=== PATIENT | male | born 1980 | race Caucasian/White ===

== ENCOUNTER 2016-12-30 15:43 | Inpatient (IN) | payer BC ==
--- NOTE | ~2016-12-30 | DS ---
Discharge Summary [place] [id number] [place]. [address] NAME: GRACIELA ACHARYA : 76 STATUS : DIS IN PAT#: [id number] AGE: 36 ADM/REG DATE : 12/30/16 MR#: [id number] REPORT SERV DATE: 01/03/17 DICTATED BY: DATE: REPORT STATUS : Draft TRANSCRIBED BY: MODL DATE: 01/02/17 ADMISSION DATE: 12/30/2016 DISCHARGE DATE: 01/02/2017 DISCHARGE DIAGNOSES: 1. Acute on chronic pancreatitis. 2. Nausea and vomiting. 3. Abdominal pain secondary to pancreatitis. 4. Hypertension. 5. Diabetes mellitus type 2. CONSULTATIONS: GI, ELHAM Garcia and Dr. Gale. PROCEDURES AND IMAGIN. 12/30/2016, CT of the abdomen and pelvis with contrast showed:. a. Mild acute pancreatitis pattern with infiltration of peripancreatic fat planes about the pancreatic body and head. b. Stable pancreatic pseudocyst at the pancreatic tail, measuring 4.8 x 2.8 cm, a decreasing pancreatic pseudocyst at the pancreatic body measuring 1.6 x 0.6 compared to 2 x 3 cm on prior pancreatic CT. c. Stable changes of cholecystectomy. d. Nonobstructing left nephrolithiasis. 2. 12/31/2016, CT of the abdomen without contrast showed:. a. CT pattern most consistent with acute pancreatitis in the appropriate clinical setting. b. Two small pancreatic pseudocysts. c. Bilateral nonobstructing nephrolithiasis. d. Status post cholecystectomy. e. Small pericardial effusion of uncertain etiology and clinical significance. f. Mild bibasilar subsegmental atelectasis. 3. 12/31/2016, KUB showed nonobstructive bowel gas pattern and 0.4 cm left-sided nephrolith visible. HOSPITAL COURSE: This is a pleasant 36-year-old male with past medical history of chronic pancreatitis, being followed by Dr. Tucker Gale of GI. Please see Dr. Radha Brown's H and P dictated on 12/30/2016 for complete details regarding the patient's admission. In brief, the patient was admitted by Dr. Brown for initial workup and management of his acute on chronic pancreatitis with intractable nausea and vomiting and hypertensive urgency. During the patient's stay, the patient has been seen by GI on 12/31/2016. The patient has gone through a period of NG tube suction and inability to tolerate foods as well as severe abdominal pain. The patient also had extended episodes of hypertension that were only controlled with IV hydralazine. The patient has since been transitioned to clonidine 0.2 mg p.o. q.8 hours with good results. The patient's home Lantus dose had been held due to patient's n.p.o. status. This will be resumed upon his discharge. The patient has been able to eat two meals without nausea and vomiting. The patient is also taking p.o. liquids Discharge Summary [address] [place]. [address] NAME: GRACIELA ACHARYA : 76 STATUS : DIS IN PAT#: [id number] AGE: 36 ADM/REG DATE : 12/30/16 MR#: [id number] REPORT SERV DATE: 01/03/17 DICTATED BY: DATE: REPORT STATUS : Draft TRANSCRIBED BY: MODL DATE: 01/02/17 well. Discussed with the patient the need to take clonidine on a continual basis due to rebound hypertension and that he should not be running out of this medication. The patient states his current abdominal pain is 5/10 which he states is good for him. PHYSICAL EXAMINATION: HEENT: Head is atraumatic, normocephalic. Pupils are equal, round, reactive to light and accommodation. Sclerae are clear. Nonicteric. No xanthelasma. Good dentition. NECK: Neck is supple with no obvious thyromegaly or lymphadenopathy. Neck veins are flat. Trachea is midline. CARDIAC: S1 and S2 with no obvious murmurs, rubs, or gallops. HEART: Rate is regular. LUNGS: Clear anterior and posteriorly with no increase in respiratory effort. GI: Abdomen is soft and has mild tenderness in his left upper outer quadrant and mid epigastric region. Bowel sounds are active in all four quadrants. Last bowel movement was last night, on 01/01/2017. No palpable organomegaly. EXTREMITIES: No significant edema, clubbing, or cyanosis. Dorsalis pedis and posterior tibial pulses are palpable bilaterally. MUSCULOSKELETAL: Moves all extremities x4. He is ambulatory without assistance. No difficulties with balance. SKIN: Skin is warm and dry, intact, normal color and turgor. NEURO/PSYCH: The patient is alert and oriented x4, pleasant cooperative. Cranial nerves II through XII are grossly intact. Affect is bright. No apparent anxiety or depression. DISCHARGE DIET: The patient will be going home on a low-fat diet. DISCHARGE MEDICATIONS: Levemir 20 units daily, NovoLog sliding scale as directed, minoxidil 10 mg twice daily, MiraLAX one packet as needed for constipation, trazodone 50 mg at bedtime for sleep, vitamin D daily, vitamin B12 daily, melatonin one tablet as needed for sleep, omeprazole 20 mg as needed for heartburn, promethazine 12.5 mg every four hours as needed for nausea, oxycodone 7.5 mg/325 mg one tablet q.4 hours p.r.n. pain. ALLERGIES: THE PATIENT HAS NO KNOWN DRUG ALLERGIES. DISCHARGE INSTRUCTIONS: The patient is to follow up with his PCP, Dr. Sarah Peña, in 7 to 10 days. The patient already has a followup appointment scheduled with GI on 01/10/[address] Gale. The patient has been instructed to not stop his clonidine for any reason due to rebound hypertension. Should the patient develop any more severe nausea and vomiting or abdominal pain, the patient is to call GI, his PCP, or to present to the ER. About 30 minutes has been spent coordinating discharge care of this patient including face- to-face encounter and summarization of the discharge. DICTATED BY: Nat Hicks NP [facility] Discharge Summary [address] [address] NAME: GRACIELA ACHARYA : 76 STATUS : DIS IN PAT#: [id number] AGE: 36 ADM/REG DATE : 12/30/16 MR#: [id number] REPORT SERV DATE: 01/03/17 DICTATED BY: DATE: REPORT STATUS : Draft TRANSCRIBED BY: CLAYTON DATE: 01/02/17 Nat Hicks NP / [id number] CC: Rogelio Briggs Jr, MD SARAH PEÑA M.D.
--- NOTE | ~2016-12-30 | HP ---
History And Physical [place] [id number] [facility] [place]. [address] NAME: GRACIELA ACHARYA : 76 STATUS : ADM IN PAT#: [id number] AGE: 36 ADM/REG DATE : 12/30/16 MR#: [id number] REPORT SERV DATE: 12/30/16 DICTATED BY: TJ LYN DATE: 12/30/16 REPORT STATUS : Draft TRANSCRIBED BY: CLAYTON DATE: 12/30/16 DATE OF ADMISSION: 12/30/2016 CHIEF COMPLAINT: Abdominal pain. HISTORY OF PRESENT ILLNESS: This is a 36-year-old male with a past medical history of chronic pancreatitis being followed by Dr. Diane Gale, the GI physician, as an outpatient with a history of pseudocyst, presented with a two-day history of severe crampy abdominal pain that progressed. The patient states he treated himself with MiraLAX, made himself n.p.o. and then started clear liquids, gave himself Prilosec and Percocet. He states he usually treats himself at home when he has occasional abdominal pain, however, this occurrence did not resolve and actually progressed and became worse with above 10/10 abdominal discomfort in the epigastric area. The patient denies any antiinflammatory usage, not using an FANY or ARB. However, the patient did say he was on vacation last week and did have one alcoholic beverage. He states that he rarely has an alcoholic beverage, hardly at all. However, only had one beverage last week. However, today, also the patient has developed intractable nausea, vomiting, and could not keep down foods nor liquids and vomited up his medications. He presented to the ER and was seen by Dr. Segovia, in hypertensive urgency with blood pressure 193/109, some IV hydralazine has been ordered. Also, the patient had a CT of the abdomen and pelvis in the ER with some early signs of pancreatitis and stable pseudocyst in the tail of the pancreas. Also, the patient was given pain medications. He has had some positive loose stools today as well. He denies any subjective fever or chills. No chest pain. No shortness of breath. The is at bedside assisting with the patient's history. REVIEW OF SYSTEMS: Please refer to HPI. PAST MEDICAL HISTORY: Chronic pancreatitis with pseudocyst, type 2 diabetes, hypertension, fatty liver, nephrolithiasis, and cardiac murmur. PAST SURGICAL HISTORY: Cholecystectomy. SOCIAL HISTORY: No tobacco and rarely has an alcoholic beverage. Also, he did have one beverage last week while on vacation. Lives at home with his . FAMILY HISTORY: Type 2 diabetes. ALLERGIES: NO KNOWN ALLERGIES. HOME MEDICATIONS: Sliding scale insulin with NovoLog, Levemir 20 units subcu daily, minoxidil 10 mg p.o. b.i.d., Prilosec 20 mg p.o. daily p.r.n., Percocet 7.5 mg/325 one tab p.o. q.4 hours p.r.n., MiraLAX one pack p.o. daily p.r.n., Phenergan 12.5 mg p.o. q.4 hours p.r.n., trazodone 50 mg p.o. at bedtime, vitamin D, vitamin B12, melatonin at bedtime p.r.n. PHYSICAL EXAMINATION: History And Physical [address] [address] NAME: GRACIELA ACHARYA : 76 STATUS : [facility]#: [id number] AGE: 36 ADM/REG DATE : 12/30/16 MR#: [id number] REPORT SERV DATE: 12/30/16 DICTATED BY: TJ LYN DATE: 12/30/16 REPORT STATUS : Draft TRANSCRIBED BY: CLAYTON DATE: 12/30/16 VITAL SIGNS: Temperature 98.1, initial blood pressure was 193/109, currently has come down to 177/86, with a pulse of 84, respiration of 20, saturating 97% on room air. GENERAL: The patient is alert and oriented x3, currently in no distress at this time. HEENT: Pupils equal, round, and reactive to light. Extraocular muscles are intact. Moist mucous membranes. CARDIOVASCULAR: S1, S2. Regular rate and rhythm. No murmurs, rubs, or gallops. No JVD. RESPIRATORY: Clear to auscultation bilaterally. No wheezes or crackles. No signs of tachypnea. ABDOMEN: Positive bowel sounds. Soft with some epigastric tenderness to palpation, but no rebound. No fluid wave. EXTREMITIES: Warm. No edema. NEUROLOGIC: Cranial nerves 2 through 12 are grossly intact. Moves all four extremities. No neuro focal deficits. IMAGING: CT of the abdomen and pelvis with a small pericardial effusion measuring 1.2 cm diameter. Liver, spleen, adrenal glands, right kidney are unremarkable. Status post cholecystectomy. There is a nonobstructing 5 mm upper pole and 2 mm mid pole left renal calculi. Stable complex probable pancreatic pseudocyst of the pancreatic tail measuring 4.8 x 2.8 cm. No change from 03/2016 CT with mild acute pancreatitis pattern with infiltration of peripancreatic fat planes in body and head. LABORATORY DATA: Sodium 139, potassium 3.6, chloride 104, bicarb of 28, BUN of 20 with a creatinine of 1.05 with a glucose of 124, albumin of 3.9, total bilirubin of 0.6, alkaline phosphatase 116, ALT of 41, AST of 29, lipase of 517. White count of 12.9 with a hemoglobin of 14.5, platelet count of 194. UA with specific gravity of 1.025, 30 protein, no leukocyte esterase, no nitrites, one white blood cell. ASSESSMENT AND PLAN: 1. [id number] pancreatitis. 2. Intractable nausea and vomiting. 3. Hypertensive urgency. 4. History of type 2 diabetes secondary to pancreatitis. The patient will be admitted to the Hospitalist Service, placed on IV fluids. We will make n.p.o. and check a.m. labs. We will provide pain management. Also check a fasting lipid panel and placed on IV blood pressure medications p.r.n. for blood pressure management. Sliding scale insulin. Also, his primary GI physician, Dr. Gale will be consulted and notified of the patient's admission. The patient will be monitored closely. CÉSAR/MODL Tj Lyn M.D. / [id number] History And Physical [address] [address] NAME: GRACIELA ACHARYA : 76 STATUS : ADM IN [facility]#: [id number] AGE: 36 ADM/REG DATE : 12/30/16 MR#: [id number] REPORT SERV DATE: 12/30/16 DICTATED BY: TJ LYN DATE: 12/30/16 REPORT STATUS : Draft TRANSCRIBED BY: CLAYTON DATE: 12/30/16 CC: Jakob Keller M.D.
--- NOTE | ~2016-12-30 | CN ---
Consultation Report [facility] [address] [place]. [address] NAME: CLIFFORD ACHARYA : 76 STATUS : ADM IN PAT#: [id number] AGE: 36 ADM/REG DATE : 12/30/16 MR#: [id number] REPORT SERV DATE: 12/31/16 DICTATED BY: NADIA PERSON DATE: 12/31/16 REPORT STATUS : Draft TRANSCRIBED BY: MODL DATE: 12/31/16 GI CONSULTATION DATE OF CONSULTATION: 12/31/2016 A 36-year-old male patient admitted on 12/30/2016. REASON FOR CONSULTATION: Evaluation and management of abdominal pain, acute recurrent pancreatitis. HISTORY OF PRESENT ILLNESS: Mr. Clifford Acharya is a very pleasant 36-year-old male patient, known to Dr. Tucker Gale, who presented to [facility] on 12/30/2016, with a chief complaint of epigastric abdominal pain, nausea, and vomiting, he states that began on Saturday, the . He states it is mainly crampy in nature but progressively worsened. He had decreased his diet to clear liquids and strictly to n.p.o. He was using pain and nausea medications but his pain progressively worsened. He began to experience nausea with vomiting, subjective fevers with chilling. He felt the pain was similar to when he has had attacks of pancreatitis before and came to [facility] for further evaluation. He does have a history of acute pancreatitis first diagnosed in August of 2014, which he did have complications with necrotizing pancreatitis, pleural effusions, and glucose intolerance. He did require Dobbhoff tube feedings during that hospitalization, and he did go home on insulin which has since been discontinued. He was seen by Dr. Jessica in October 2014, with an endoscopic ultrasound being undertaken. It demonstrated some diffuse echogenicity, hyper and hypoechoic foci and shadowing of foci consistent with chronic pancreatitis. The pancreatic duct measured 1.7 mm and no significant pathology was found in the common bile duct. He has had his gallbladder removed by Dr. Townsend in October of 2014. He was admitted in December 2014 with recurrent pancreatitis again in January 2016 with pancreatitis as well as now he has been admitted with his 4th episode of pancreatitis. He states that he has had no changes in medications. He previously was on lisinopril which was discontinued as it could cause recurrent pancreatitis. He does tell me that he was on vacation last week. He did eat out several times a day high fatty foods as well as he did drink "a couple of beers". CT scan double contrast showed some mild acute pancreatitis with infiltration of the peripancreatic fat planes about the pancreatic body and head, stable pancreatic pseudocyst at the pancreatic tail 4.8 x 2.8 cm and decrease in size of the pancreatic cyst in the body of the pancreas to 1.6 x 0.6 cm, previously was 2 x 3 cm. Today he states he is still having some epigastric discomfort. It is lessened in intensity. He has had less nausea, no emesis. He has tolerated clears. He has been up and ambulating. He would like to try diet advancement. PAST MEDICAL HISTORY: He has a pertinent past medical history for acute recurrent pancreatitis, necrotizing pancreatitis, pancreatic pseudocyst, hypertension, nephrolithiasis, fatty liver disease, cholelithiasis, chronic heart murmur, and type 2 diabetes. PAST SURGICAL HISTORY: Includes a cholecystectomy and lithotripsy. Consultation Report [address] [place]. [address] NAME: CLIFFORD ACHARYA : 76 STATUS : ADM IN [facility]#: [id number] AGE: 36 ADM/REG DATE : 12/30/16 MR#: [id number] REPORT SERV DATE: 12/31/16 DICTATED BY: NADIA PERSON DATE: 12/31/16 REPORT STATUS : Draft TRANSCRIBED BY: CLAYTON DATE: 12/31/16 SOCIAL HISTORY: . He has three children. He works at [employer]. He denies tobacco and illicits. Occasional alcohol. FAMILY HISTORY: Noncontributory from a GI standpoint. ALLERGIES: NO KNOWN ALLERGIES. HOME MEDICATIONS: 1. NovoLog. 2. Levemir. 3. Loniten. 4. Prilosec. 5. Percocet. 6. MiraLAX. 7. Phenergan. 8. Desyrel. 9. Vitamin D. 10.Vitamin B12. 11.Melatonin. REVIEW OF SYSTEMS: A 10-point review of systems has been obtained with pertinent positives being addressed in the history of present illness. PHYSICAL EXAMINATION: VITAL SIGNS: Temperature is 98.5, pulse 86, respirations 18, and blood pressure 135/63. NEUROLOGIC: Physical exam reveals an alert, male, resting in bed with no focal deficits. GENERAL: Cooperative, in no apparent distress. Awake, alert, and oriented x3. HEAD, EARS, EYES, NOSE, AND THROAT: Anicteric. Pupils equal, round, reactive to light and accommodation. Normocephalic and atraumatic. NECK: No JVD. No palpable nodes. Supple. LUNGS: Clear anteriorly with normal respiratory effort exhibited. Equal expansion. CARDIOVASCULAR SYSTEM: Regular rate and rhythm. S1 and S2. ABDOMEN: Soft with some mild tenderness to palpation in the epigastric left and right upper quadrant region without rebound or guarding. He has hypoactive bowel sounds. No distention. No organomegaly appreciated. EXTREMITIES: No edema. Normal distal pulses. SKIN: Warm, dry, and intact. PERTINENT LABORATORY DATA: Sodium is 136, potassium 3.3, BUN 15, and creatinine is 0.85. White count is 11.9, hemoglobin is 13.2, and hematocrit 38.7. Total bilirubin 0.9, alkaline phosphatase 106, ALT 33, AST 22, and lipase on admission 517, currently 232. Consultation Report [address] [address] NAME: CLIFFORD ACHARYA : 76 STATUS : ADM IN [facility]#: [id number] AGE: 36 ADM/REG DATE : 12/30/16 MR#: [id number] REPORT SERV DATE: 12/31/16 DICTATED BY: NADIA PERSON DATE: 12/31/16 REPORT STATUS : Draft TRANSCRIBED BY: CLAYOTN DATE: 12/31/16 ASSESSMENT: 1. Acute recurrent pancreatitis. 2. Pancreatic pseudocyst stable and decreasing in size. 3. Abdominal pain. Nausea with vomiting secondary to acute recurrent pancreatitis. 4. Hypertensive emergency. 5. Hypokalemia. 6. Type 2 diabetes. PLAN: 1. Replace electrolytes. 2. IV fluids. 3. Pain and nausea control. 4. Advance diet as tolerated. 5. We will follow. ELICIA/CLAYTON ELHAM Garcia / [id number] CC: Jakob Serrato
[2016-12-30 14:07] LABS: BASOPHILS 0.1 %; BASOPHILS ABSOLUTE 0.01 10/3/uL (0.0-0.16); EOSINOPHILS 0.2 %; EOSINOPHILS ABSOLUTE 0.03 10/3/uL (0.0-0.53); HEMATOCRIT 40.7 % (40.0-51.0); HEMOGLOBIN 14.5 g/dL (13.6-17.8); IMMATURE GRANULOCYTES 0.2 %; IMMATURE GRANULOCYTES ABSOLUTE 0.02 10/3/uL (0.0-0.11); LYMPHOCYTES 11.6 %; MEAN CORPUS HGB CONC 35.6 g/dL (32.0-36.0); MEAN CORPUSCULAR HEMOGLOB 29.7 pg (26.0-34.0); MEAN PLATELET VOLUME 10.8 fL (9.2-13.0); MONOCYTES 4.9 %; MONOCYTES ABSOLUTE 0.64 10/3/uL (0.21-1.20); NEUTROPHILS ABSOLUTE 10.73 10/3/uL (2.02-8.40); RBC DISTRIBUTION WIDTH 12.1 % (12.0-16.0); RED CELL COUNT 4.89 10/6/uL (4.7-6.1)
[2016-12-30 14:08] LABS: MANUAL DIFF NO %; MEAN CORPUSCULAR VOLUME 83.2 fL (80-100); PLATELET COUNT 194 10/3/uL (150-400); WHITE BLOOD CELLS 12.9 10/3/uL (4.5-10.5)
[2016-12-30 14:22] LABS: A/G RATIO 1.1 (0.7-1.9); ALBUMIN 3.9 G/DL (3.5-5.0); BUN (BLOOD UREA NITROGEN) 20 MG/DL (6-23); CALCIUM, SERUM 9.2 MG/DL (8.5-10.4); CHLORIDE, SERUM 104 MMOL/L (96-112); CO2 (CARBON DIOXIDE) 28 MMOL/L (24-34); CREATININE 1.05 MG/DL (0.70-1.30); GFR AFRICAN AMERICAN 104 ML/MIN (>=60); GFR NON AFRICAN AMERICAN 90 ML/MIN (>=60); GLOBULIN 3.5 G/DL (2.5-4.1); GLUCOSE, SERUM 124 MG/DL (60-99); POTASSIUM, SERUM 3.6 MMOL/L (3.5-5.3); SGOT(AST) 29 U/L (5-40); SGPT(ALT) 41 U/L (5-65); SODIUM, SERUM 139 MMOL/L (135-148); TOTAL BILIRUBIN 0.6 MG/DL (0-1.2); TOTAL PROTEIN 7.4 G/DL (6.0-8.5)
[2016-12-30 14:23] LABS: ALKALINE PHOSPHATASE 116 U/L (45-117)
[2016-12-30 15:16] LABS: ASCORBIC ACID (UR NOT ORDER) NEG (NEG); BILIRUBIN, URINE NEGATIVE (NEG); ER URINALYSIS TAT 0 Hrs 08 Mins; KETONE, URINE NEGATIVE (NEG); LEUKOCYTE ESTERASE(NOT OR NEG (NEG); NITRITE (URINE) NEG (NEG); WBC (NOT ORDERED) (RFLEX) 1 (0-5)
[~2016-12-30 15:43] MED LIST: APRES25 PO; CYANO1000T PO; KLONO1 PO; LEVEMIR SC; LISINOPRIL40 MG PO; LONITEN10 PO; LONITEN2.5 PO; LORTAB PO; MELA3; MELA3 PO; MELATONIN OTC PO; MELATONIN5 M1 PO; NORV10 PO; NOVOLOG SC; PCET; PCET PO; PROTONIX PO; T PO; TRAZ50 PO; TRAZODONE PO; VITAMIN B12 OTC PO; VITAMIN D OTC PO; VITAMIN D1000 UNI1 PO; VITAMIN D31000 UNIT PO; ZESTRIL40 MG PO; ZOFRAN ODT4 MG PO; ZOFRAN4 PO
[2016-12-30] MEDS ORDERED: PRILOSEC OTC20 MG PO (15:44)
[2016-12-30] MEDS ORDERED: PR12.5 PO (15:45)
[2016-12-30] MEDS ORDERED: PERCOCET 7.5/321 TAB PO (15:45)
[2016-12-30] MEDS ORDERED: LEVEMIR SC (15:46)
[2016-12-30] MEDS ORDERED: NOVOLOG SC (15:46)
[2016-12-30] MEDS ORDERED: MIRALAX POWDER1 PKT PO (15:46)
[2016-12-30 17:06] LABS: TROPONIN I <0.02 NG/ML (<0.05)
[2016-12-31 05:12] LABS: BASOPHILS 0.2 %; BASOPHILS ABSOLUTE 0.02 10/3/uL (0.0-0.16); EOSINOPHILS 0.4 %; EOSINOPHILS ABSOLUTE 0.05 10/3/uL (0.0-0.53); HEMATOCRIT 38.7 % (40.0-51.0); HEMOGLOBIN 13.2 g/dL (13.6-17.8); IMMATURE GRANULOCYTES 0.3 %; IMMATURE GRANULOCYTES ABSOLUTE 0.03 10/3/uL (0.0-0.11); LYMPHOCYTES 13.4 %; LYMPHOCYTES ABSOLUTE 1.59 10/3/uL (0.67-4.30); MEAN CORPUS HGB CONC 34.1 g/dL (32.0-36.0); MEAN CORPUSCULAR VOLUME 85.1 fL (80-100); MEAN PLATELET VOLUME 11.5 fL (9.2-13.0); MONOCYTES 7.5 %; MONOCYTES ABSOLUTE 0.89 10/3/uL (0.21-1.20); NEUTROPHILS 78.2 %; NEUTROPHILS ABSOLUTE 9.33 10/3/uL (2.02-8.40); PLATELET COUNT 171 10/3/uL (150-400); RBC DISTRIBUTION WIDTH 12.3 % (12.0-16.0); RED CELL COUNT 4.55 10/6/uL (4.7-6.1); WHITE BLOOD CELLS 11.9 10/3/uL (4.5-10.5)
[2016-12-31 05:16] LABS: MANUAL DIFF NO %
[2016-12-31 05:24] LABS: A/G RATIO 1.1 (0.7-1.9); ALBUMIN 3.3 G/DL (3.5-5.0); ALKALINE PHOSPHATASE 105 U/L (45-117); CALCIUM, SERUM 8.5 MG/DL (8.5-10.4); CHLORIDE, SERUM 103 MMOL/L (96-112); CHOL/HDL RATIO(NOT ORDER) 2.2 (0-5); CHOLESTEROL 116 MG/DL (< 200); CREATININE 0.85 MG/DL (0.70-1.30); GFR AFRICAN AMERICAN 128 ML/MIN (>=60); GFR NON AFRICAN AMERICAN 111 ML/MIN (>=60); GLUCOSE, SERUM 143 MG/DL (60-99); HDL CHOLESTEROL 52 MG/DL (> 39); LDL CHOLESTEROL 33 MG/DL (< 130); NON-HDL CHOLESTEROL 64 MG/DL (< 160); POTASSIUM, SERUM 3.3 MMOL/L (3.5-5.3); SGOT(AST) 22 U/L (5-40); SGPT(ALT) 33 U/L (5-65); SODIUM, SERUM 136 MMOL/L (135-148); TOTAL BILIRUBIN 0.9 MG/DL (0-1.2); TOTAL PROTEIN 6.3 G/DL (6.0-8.5)
[2016-12-31 05:38] LABS: BUN (BLOOD UREA NITROGEN) 15 MG/DL (6-23); CO2 (CARBON DIOXIDE) 23 MMOL/L (24-34); TRIGLYCERIDE 155 MG/DL (< 150)
[2017-01-01 05:03] LABS: BASOPHILS 0.1 %; BASOPHILS ABSOLUTE 0.01 10/3/uL (0.0-0.16); EOSINOPHILS 3.1 %; EOSINOPHILS ABSOLUTE 0.23 10/3/uL (0.0-0.53); IMMATURE GRANULOCYTES 0.3 %; IMMATURE GRANULOCYTES ABSOLUTE 0.02 10/3/uL (0.0-0.11); LYMPHOCYTES ABSOLUTE 1.49 10/3/uL (0.67-4.30); MEAN CORPUSCULAR HEMOGLOB 29.6 pg (26.0-34.0); MEAN CORPUSCULAR VOLUME 84.7 fL (80-100); MEAN PLATELET VOLUME 11.1 fL (9.2-13.0); MONOCYTES 7.4 %; MONOCYTES ABSOLUTE 0.55 10/3/uL (0.21-1.20); NEUTROPHILS 69.1 %; NEUTROPHILS ABSOLUTE 5.16 10/3/uL (2.02-8.40); PLATELET COUNT 137 10/3/uL (150-400); RED CELL COUNT 4.05 10/6/uL (4.7-6.1); WHITE BLOOD CELLS 7.5 10/3/uL (4.5-10.5)
[2017-01-01 05:04] LABS: HEMATOCRIT 34.3 % (40.0-51.0); MANUAL DIFF NO %
[2017-01-01 05:14] LABS: CALCIUM, SERUM 8.7 MG/DL (8.5-10.4); CHLORIDE, SERUM 103 MMOL/L (96-112); CO2 (CARBON DIOXIDE) 26 MMOL/L (24-34); CREATININE 0.75 MG/DL (0.70-1.30); GFR AFRICAN AMERICAN 135 ML/MIN (>=60); GFR NON AFRICAN AMERICAN 116 ML/MIN (>=60); GLUCOSE, SERUM 145 MG/DL (60-99); POTASSIUM, SERUM 3.7 MMOL/L (3.5-5.3); SODIUM, SERUM 138 MMOL/L (135-148)
[2017-01-01 05:17] LABS: BUN (BLOOD UREA NITROGEN) 6 MG/DL (6-23)
[2017-01-02 06:16] LABS: BASOPHILS 0.2 %; BASOPHILS ABSOLUTE 0.01 10/3/uL (0.0-0.16); EOSINOPHILS 5.1 %; EOSINOPHILS ABSOLUTE 0.25 10/3/uL (0.0-0.53); HEMATOCRIT 33.9 % (40.0-51.0); IMMATURE GRANULOCYTES 0.2 %; IMMATURE GRANULOCYTES ABSOLUTE 0.01 10/3/uL (0.0-0.11); LYMPHOCYTES 27.4 %; LYMPHOCYTES ABSOLUTE 1.35 10/3/uL (0.67-4.30); MANUAL DIFF NO %; MEAN CORPUS HGB CONC 35.4 g/dL (32.0-36.0); MEAN CORPUSCULAR HEMOGLOB 29.7 pg (26.0-34.0); MEAN CORPUSCULAR VOLUME 83.9 fL (80-100); MEAN PLATELET VOLUME 10.8 fL (9.2-13.0); MONOCYTES 10.8 %; MONOCYTES ABSOLUTE 0.53 10/3/uL (0.21-1.20); NEUTROPHILS 56.3 %; NEUTROPHILS ABSOLUTE 2.77 10/3/uL (2.02-8.40); PLATELET COUNT 134 10/3/uL (150-400); RBC DISTRIBUTION WIDTH 12.1 % (12.0-16.0); RED CELL COUNT 4.04 10/6/uL (4.7-6.1); WHITE BLOOD CELLS 4.9 10/3/uL (4.5-10.5)
[2017-01-02 06:33] LABS: BUN (BLOOD UREA NITROGEN) 7 MG/DL (6-23); CHLORIDE, SERUM 98 MMOL/L (96-112); CO2 (CARBON DIOXIDE) 29 MMOL/L (24-34); CREATININE 0.89 MG/DL (0.70-1.30); GFR AFRICAN AMERICAN 126 ML/MIN (>=60); GFR NON AFRICAN AMERICAN 108 ML/MIN (>=60); POTASSIUM, SERUM 3.9 MMOL/L (3.5-5.3); SODIUM, SERUM 133 MMOL/L (135-148)
[2017-01-02 06:35] LABS: GLUCOSE, SERUM 243 MG/DL (60-99)
[2017-01-02] MEDS ORDERED: CAT2 PO (09:51)
[2017-01-02] MEDS ORDERED: MYTAB GAS80 MG PO (09:51)
[2017-01-02] MEDS ORDERED: PERCOCET 10/3251 TAB PO (11:46)
[2017-01-03] MEDS ORDERED: CAT2 PO (02:38)
[2017-01-03] MEDS ORDERED: PERCOCET 10/3251 TAB PO (02:40)
[2017-01-03] MEDS ORDERED: PR25 PO (02:41)
[2017-01-03] MEDS ORDERED: LEVEMFLXPN SC (02:42)
[2017-01-03] MEDS ORDERED: NOVOPEN SC (02:42)
[2017-01-03] MEDS ORDERED: MELATONIN OTC PO (02:43)
[2017-01-03] MEDS ORDERED: TRAZ50 PO (02:44)
[2017-01-03] MEDS ORDERED: MIRALAX POWDER1 PKT PO (02:44)
[2017-01-03] MEDS ORDERED: VITAMIN B-12 OTC PO (02:45)
[2017-01-03] MEDS ORDERED: VITAMIN D OTC PO (02:46)
[2017-01-03] MEDS ORDERED: PRILOSEC OTC20 MG PO (02:50)
[2017-01-05] MEDS ORDERED: VITAMIN D1000 UNI1 PO (09:57)
[2017-01-05] MEDS ORDERED: CYANO1000T PO (09:57)
[2017-01-05] MEDS ORDERED: COZ50 PO (09:59)
[2017-01-05] MEDS ORDERED: CAT1 PO (09:59)
[2017-01-05] MEDS ORDERED: CREON PO (10:02)
[2017-01-05] MEDS ORDERED: APRES25 PO (10:02)
[2017-01-05] MEDS ORDERED: NORCO1 TA2 PO (10:04)
== END 2017-01-02 13:17 | disposition home or self-care (01) | DRG 439 ==
LOC: ER 15:43 → 6NO 17:04 → 7NO 17:17
PROVIDERS: Emergency Medicine; Internal Medicine; Nurse Practitioner Family
DX: K85.90 Acute pancreatitis without necrosis or infection, unspecified (principal); K86.3 Pseudocyst of pancreas; E11.9 Type 2 diabetes mellitus without complications; I16.0 Hypertensive urgency; Z79.4 Long term (current) use of insulin; K86.1 Other chronic pancreatitis; E87.6 Hypokalemia
CPT/HCPCS: 36415; 74000; 74150; 74177; 80048; 80053; 80061; 81001; 82150; 82962; 83690; 83735; 84132; 84484; 85025; 86850; 86900; 86901; 96374; 96375; 99285; A9270-GY; J0360; J1170; J2405; J2550; Q9967